=== PATIENT | male | born 1990 | race American Indian/Alaskan Native ===

== ENCOUNTER 2017-10-23 20:29 | Emergency (ER) | payer OTHER ==
--- NOTE | 2017-10-24 00:11 | Emergency Department Report ---
Upper Respiratory HPI - HPI Chief Complaint: Upper Respiratory Infection Stated Complaint: HEADACHE,COUGH Time Seen by Provider: 10/23/17 23:00 Duration: 2 Days URI Symptoms: Rhinorrhea: No, Sore Throat: No, Ear Pain: No, Cough: Yes ( patient has had a mild cough productive of clear sputum), Shortness of Breath: No, Sick Contacts: No, Unable to Take Fluids: No, Urine Output Abnormal: No, Listless Behavior: No Other History: Patient is a 26-year-old male who has a history of smoking who is presenting with productive cough patient deny most other symptoms that would be concerning such as fever body aches respiratory distress. Patient also has no nausea vomiting diarrhea sore throat at this time - Home Meds and Allergies Home Medications: Previous Rx's Medication Instructions Recorded Last Taken Type Azithromycin [Zithromax Z-THEODORE] 250 mg PO DAILY 5 Days #6 tablet 10/23/17 Unknown Rx predniSONE [Deltasone] 20 mg PO QDAY #5 tab 10/24/17 Unknown Rx Allergies/Adverse Reactions: Allergies Allergy/AdvReac Type Severity Reaction Status Date / Time No Known Allergies Allergy Unverified 10/23/17 20:37 ED Review of Systems ROS: Stated complaint: HEADACHE,COUGH Other details as noted in HPI Comment: All other systems reviewed and negative ED Past Medical Hx - Past Medical History Previous Medical History?: No - Surgical History Past Surgical History?: No - Social History Smoking Status: Current Every Day Smoker Substance Use Type: None - Medications Home Medications: Home Medications Medication Instructions Recorded Confirmed Last Taken Type Azithromycin [Zithromax Z-THEODORE] 250 mg PO DAILY 5 Days #6 tablet 10/23/17 Unknown Rx predniSONE [Deltasone] 20 mg PO QDAY #5 tab 10/24/17 Unknown Rx ED Bronchiolitis Physical Exam - Exam General: Vital signs noted. No distress. Alert and acting appropriately. HEENT: No Pharyngeal Erythema, No Conjuctival Injection, No Dry Mucous Membranes , No Rhinorrhea Ear: Neither TM Bulge, Neither TM Erythema, Neither EAC Discharge Neck: No Adenopathy, No Rigidity Lungs: Yes Clear Lung Sounds, Yes Good Air Exchange, No Wheezes, No Stridor, No Cough, No Nasal Flaring, No Retractions, No Use of Accessory Muscles Heart: Yes Regular, No Murmur Abdomen: Yes Normal Bowel Sounds, No Tenderness, No Peritoneal Signs Skin: No Rash, No Eczema Neurologic: Alert and oriented, no deficits. Musculoskeletal: Unremarkable. ED Physical Exam - General Limitations: No Limitations ED Course Vital Signs 10/23/17 20:37 Temperature 97.8 F Pulse Rate 98 H Respiratory 18 Rate Blood Pressure 137/84 O2 Sat by Pulse 98 Oximetry - Reevaluation(s) Reevaluation #1: 10/23/17 23:50 Patient is a 26-year-old [place] male who is presenting with call call congestion patient is a smoker be treated smoke and bronchitis were given a Z- Theodore and prednisone will be discharged home Critical care attestation.: If time is entered above; I have spent that time in minutes in the direct care of this critically ill patient, excluding procedure time. ED Disposition Clinical Impression: Bronchitis Disposition: DC-01 TO HOME OR SELFCARE Is pt being admited?: No Does the pt Need Aspirin: No Condition: Fair Instructions: Acute Bronchitis (ED) Prescriptions: Azithromycin [Zithromax Z-THEODORE] 250 mg PO DAILY 5 Days #6 tablet predniSONE [Deltasone] 20 mg PO QDAY #5 tab Referrals: MIMI VALADEZ MD [Primary Care Provider] - 3-5 Days Forms: Work/School Release Form(ED)
[2017-10-24 00:44] VITALS: BP 133/91
== END 2017-10-24 00:43 | disposition home or self-care (01) ==
LOC: ED 20:29
DX: J40 Bronchitis, not specified as acute or chronic (principal); F17.200 Nicotine dependence, unspecified, uncomplicated
CPT/HCPCS: 99282

== ENCOUNTER 2019-11-24 08:34 | Emergency (ER) | payer SELFPAY ==
--- NOTE | 2019-11-24 12:37 | Emergency Department Report ---
ED General Adult HPI - General Chief complaint: Headache Stated complaint: HEADACHE/COLD FLASHES Time Seen by Provider: 11/24/19 11:44 Source: patient Mode of arrival: Ambulatory Limitations: No Limitations - History of Present Illness Initial comments: This is a 29-year-old male complaining of headache ,neck pain, sore throat and chills off and on. Symptoms started yesterday. He denies fever vomiting and diarrhea no cough - Related Data Previous Rx's Medication Instructions Recorded Last Taken Type Azithromycin [Zithromax Z-THEODORE] 250 mg PO DAILY 5 Days #6 tablet 10/23/17 Unknown Rx predniSONE [Deltasone] 20 mg PO QDAY #5 tab 10/24/17 Unknown Rx Amoxicillin [Trimox CAP] 500 mg PO Q12H 10 Days #20 capsule 11/24/19 Unknown Rx Allergies Allergy/AdvReac Type Severity Reaction Status Date / Time No Known Allergies Allergy Verified 11/24/19 08:36 ED Review of Systems ROS: Stated complaint: HEADACHE/COLD FLASHES Other details as noted in HPI Comment: All other systems reviewed and negative Constitutional: chills. denies: fever ENT: throat pain Respiratory: denies: cough, shortness of breath Cardiovascular: denies: dyspnea on exertion Gastrointestinal: denies: abdominal pain Neurological: headache ED Past Medical Hx - Past Medical History Previous Medical History?: No - Surgical History Past Surgical History?: No - Social History Smoking Status: Former Smoker Substance Use Type: None - Medications Home Medications: Home Medications Medication Instructions Recorded Confirmed Last Taken Type Azithromycin [Zithromax Z-THEODORE] 250 mg PO DAILY 5 Days #6 tablet 10/23/17 Unknown Rx predniSONE [Deltasone] 20 mg PO QDAY #5 tab 10/24/17 Unknown Rx Amoxicillin [Trimox CAP] 500 mg PO Q12H 10 Days #20 capsule 11/24/19 Unknown Rx ED Physical Exam - General Limitations: No Limitations General appearance: alert, in no apparent distress - Head Head exam: Present: atraumatic - Eye Eye exam: Present: normal appearance. Absent: conjunctival injection - ENT ENT exam: Present: mucous membranes moist, TM's normal bilaterally, other (left tonsil exudate, pharyngeal erythema, Uvula midline no trimus) - Neck Neck exam: Present: full ROM, lymphadenopathy - Respiratory Respiratory exam: Present: normal lung sounds bilaterally. Absent: respiratory distress, wheezes - Cardiovascular Cardiovascular Exam: Present: regular rate, normal heart sounds - Neurological Exam Neurological exam: Present: alert, CN II-XII intact, normal gait - Psychiatric Psychiatric exam: Present: normal affect - Skin Skin exam: Present: warm, dry, intact, normal color. Absent: rash ED Course Vital Signs 11/24/19 08:41 Temperature 99.6 F Pulse Rate 100 H Respiratory 18 Rate Blood Pressure 138/85 O2 Sat by Pulse 98 Oximetry ED Medical Decision Making - Medical Decision Making 29-year-old male with a one day complaint of headache, sore throat, neck pain and chills. On exam he did have exudate on the right tonsil rapid strep was positive, will treat with antibiotics patient instructed to change his toothbrush 24 hours after starting antibiotic warm salt water gargles and Advil or Tylenol when necessary for pain or fever Critical Care Time: No Critical care attestation.: If time is entered above; I have spent that time in minutes in the direct care of this critically ill patient, excluding procedure time. ED Disposition Clinical Impression: Strep pharyngitis Disposition: -01 TO HOME OR SELFCARE Is pt being admited?: No Does the pt Need Aspirin: No Condition: Stable Instructions: Strep Throat (ED) Additional Instructions: Warm salt water gargles 3 times a day Advil or Tylenol when necessary for pain or Fever. take all of antibiotics until is completed change her toothbrush 24 hours after starting antibiotic. Which are primary care doctor as needed Prescriptions: Amoxicillin [Trimox CAP] 500 mg PO Q12H 10 Days #20 capsule Referrals: [facility], [Primary Care Provider] - 3-5 Days Time of Disposition: 12:40
[2019-11-24 13:04] VITALS: BP 136/84
== END 2019-11-24 13:03 | disposition home or self-care (01) ==
LOC: ED 08:34
DX: J02.0 Streptococcal pharyngitis (principal)
CPT/HCPCS: 87430; 99283

== ENCOUNTER 2021-02-17 03:29 | Emergency (ER) | payer SELFPAY ==
[2021-02-17 03:41] VITALS: BP 128/89
[2021-02-17] MEDS ORDERED: SUMAtriptan SUCCINATE 6 MG/0.5 ML INJ SUB-Q ONE (03:47)
--- NOTE | 2021-02-17 04:37 | Cat Scan Report ---
CT HEAD WITHOUT CONTRAST INDICATION / CLINICAL INFORMATION: Headache for 2 months. TECHNIQUE: All CT scans at this location are performed using CT dose reduction for ALARA by means of automated exposure control. COMPARISON: None available. FINDINGS: HEMORRHAGE: None. EXTRA-AXIAL SPACES: Normal in size and morphology for the patient's age. VENTRICULAR SYSTEM: Normal in size and morphology for the patient's age. CEREBRAL PARENCHYMA: No significant abnormality. No acute territorial infarct. MIDLINE SHIFT / HERNIATION: None. CEREBELLUM / BRAINSTEM: No significant abnormality. ORBITS: Normal as visualized. SOFT TISSUES: No significant abnormality. SKULL: No significant abnormality. PARANASAL SINUSES / MASTOID AIR CELLS: Normal as visualized. ADDITIONAL FINDINGS: None. IMPRESSION: No acute intracranial abnormality. Signer Name: Harry Beaver MD Signed: 02/17/2021 4:33 AM Workstation Name: [id number]
[2021-02-17 04:45] LABS: Basophils % (Auto) 0.7 % (0.0-1.8); Eosinophils # (Auto) 0.1 K/mm3 (0.0-0.4); Eosinophils % (Auto) 1.4 % (0.0-4.3); Hematocrit 42.5 % (35.5-45.6); Hemoglobin 14.8 gm/dl (11.8-15.2); Lymphocytes # (Auto) 1.9 K/mm3 (1.2-5.4); Lymphocytes % (Auto) 33.6 % (13.4-35.0); Mean Corpuscular HGB Conc 35 % (32-34); Mean Corpuscular Volume 94 fl (84-94); Monocytes # (Auto) 0.7 K/mm3 (0.0-0.8); Monocytes % (Auto) 12.6 % (0.0-7.3); Platelet Count 219 K/mm3 (140-440); Red Blood Count 4.51 M/mm3 (3.65-5.03); Red Cell Distribution Width 12.5 % (13.2-15.2)
--- NOTE | 2021-02-17 04:56 | Emergency Department Report ---
ED General Adult HPI - General Chief complaint: Headache Stated complaint: HEADACHE Time Seen by Provider: 02/17/21 03:43 Source: patient Mode of arrival: Ambulatory Limitations: No Limitations - History of Present Illness Initial comments: 30-year-old -[place] male patient presents with complaints of intermittent left-sided headache x2 months, suddenly worsening tonight. He states the pain normally occurs at night and admits to left eye watering and left nasal drainage. He denies any past medical history of migraines, head trauma, numbness/tingling/weakness in his limbs, confusion, memory loss, nausea/vomiting, difficulty with speech/ambulation, vision changes, or dizziness. He rates his current headache as a 9/10 in severity and states it is not improving with OTC medications. No past medical history per patient. - Related Data Previous Rx's Medication Instructions Recorded Last Taken Type Azithromycin [Zithromax Z-THEODORE] 250 mg PO DAILY 5 Days #6 tablet 10/23/17 Unknown Rx predniSONE [Deltasone] 20 mg PO QDAY #5 tab 10/24/17 Unknown Rx Amoxicillin [Trimox CAP] 500 mg PO Q12H 10 Days #20 capsule 11/24/19 Unknown Rx SUMAtriptan succinate [Sumatriptan 6 mg SQ QDAY PRN #6 pen 02/17/21 Unknown Rx Succinate] Allergies Allergy/AdvReac Type Severity Reaction Status Date / Time No Known Allergies Allergy Verified 11/24/19 08:36 ED Review of Systems ROS: Stated complaint: HEADACHE Other details as noted in HPI Constitutional: denies: chills, diaphoresis, fever, malaise, weakness Respiratory: denies: cough, shortness of breath Cardiovascular: denies: chest pain Endocrine: denies: excessive sweating Gastrointestinal: denies: abdominal pain, nausea, vomiting Musculoskeletal: denies: back pain Skin: denies: change in color Neurological: headache. denies: numbness, paresthesias, confusion, abnormal gait Hematological/Lymphatic: denies: swollen glands ED Past Medical Hx - Past Medical History Previous Medical History?: No - Surgical History Past Surgical History?: No - Social History Smoking Status: Never Smoker Substance Use Type: None - Medications Home Medications: Home Medications Medication Instructions Recorded Confirmed Last Taken Type Azithromycin [Zithromax Z-THEODORE] 250 mg PO DAILY 5 Days #6 tablet 10/23/17 Unknown Rx predniSONE [Deltasone] 20 mg PO QDAY #5 tab 10/24/17 Unknown Rx Amoxicillin [Trimox CAP] 500 mg PO Q12H 10 Days #20 capsule 11/24/19 Unknown Rx SUMAtriptan succinate [Sumatriptan 6 mg SQ QDAY PRN #6 pen 02/17/21 Unknown Rx Succinate] ED Physical Exam - General Limitations: No Limitations General appearance: alert, in no apparent distress - Head Head exam: Present: atraumatic, normocephalic - Eye Eye exam: Present: normal appearance. Absent: scleral icterus - Neck Neck exam: Present: normal inspection, full ROM. Absent: tenderness - Respiratory Respiratory exam: Present: normal lung sounds bilaterally. Absent: respiratory distress - Cardiovascular Cardiovascular Exam: Present: regular rate, normal rhythm - Neurological Exam Neurological exam: Present: alert, oriented X3, CN II-XII intact, normal gait. Absent: motor sensory deficit - Expanded Neurological Exam Expanded Cerebellar function: Finger to Nose: Normal, Heel to [place]: Normal, [place]: Normal Sensory exam: Upper Extremity Light Touch: Normal, Lower Extremity Light Touch: Normal Motor strength exam: RUE: 5, LUE: 5, RLE: 5, LLE: 5 - Psychiatric Psychiatric exam: Present: normal affect, normal mood - Skin Skin exam: Present: warm, dry, intact, normal color. Absent: rash ED Course Vital Signs 02/17/21 03:39 Temperature 98.0 F Pulse Rate 72 Respiratory 16 Rate Blood Pressure 128/89 O2 Sat by Pulse 96 Oximetry ED Medical Decision Making - Lab Data Result diagrams: 02/17/21 04:01 02/17/21 04:01 Lab Results 02/17/21 02/17/21 Range/Units 04:01 04:01 WBC 5.6 (4.5-11.0) K/mm3 RBC 4.51 (3.65-5.03) M/mm3 Hgb 14.8 (11.8-15.2) gm/dl Hct 42.5 (35.5-45.6) % MCV 94 (84-94) fl MCH 33 H (28-32) pg MCHC 35 H (32-34) % RDW 12.5 L (13.2-15.2) % Plt Count 219 (140-440) K/mm3 Lymph % (Auto) 33.6 (13.4-35.0) % [place] % (Auto) 12.6 H (0.0-7.3) % Eos % (Auto) 1.4 (0.0-4.3) % Baso % (Auto) 0.7 (0.0-1.8) % Lymph # (Auto) 1.9 (1.2-5.4) K/mm3 [place] # (Auto) 0.7 (0.0-0.8) K/mm3 Eos # (Auto) 0.1 (0.0-0.4) K/mm3 Baso # (Auto) 0.0 (0.0-0.1) K/mm3 Seg Neutrophils % 51.7 (40.0-70.0) % Seg Neutrophils # 2.9 (1.8-7.7) K/mm3 Sodium 138 (137-145) mmol/L Potassium 3.6 (3.6-5.0) mmol/L Chloride 99.6 (98-107) mmol/L Carbon Dioxide 28 (22-30) mmol/L Anion Gap 14 mmol/L BUN 12 (9-20) mg/dL Creatinine 1.1 (0.8-1.3) mg/dL Estimated GFR > 60 ml/min BUN/Creatinine Ratio 11 % Glucose 93 (75-100) mg/dL Calcium 8.7 (8.4-10.2) mg/dL Total Bilirubin 0.40 (0.1-1.2) mg/dL AST 21 (5-40) units/L ALT 19 (7-56) units/L Alkaline Phosphatase 90 (35-129) units/L Total Protein 7.5 (6.3-8.2) g/dL Albumin 4.4 (3.9-5) g/dL Albumin/Globulin Ratio 1.4 % - Radiology Data Radiology results: report reviewed CT HEAD WITHOUT CONTRAST INDICATION / CLINICAL INFORMATION: Headache for 2 months. TECHNIQUE: All CT scans at this location are performed using CT dose reduction for ALARA by means of automated exposure control. COMPARISON: None available. FINDINGS: HEMORRHAGE: None. EXTRA-AXIAL SPACES: Normal in size and morphology for the patient's age. VENTRICULAR SYSTEM: Normal in size and morphology for the patient's age. CEREBRAL PARENCHYMA: No significant abnormality. No acute territorial infarct. MIDLINE SHIFT / HERNIATION: None. CEREBELLUM / BRAINSTEM: No significant abnormality. ORBITS: Normal as visualized. SOFT TISSUES: No significant abnormality. SKULL: No significant abnormality. PARANASAL SINUSES / MASTOID AIR CELLS: Normal as visualized. ADDITIONAL FINDINGS: None. IMPRESSION: No acute intracranial abnormality. - Medical Decision Making 30-year-old -[place] male patient presents with complaints of intermittent left-sided headache x2 months, suddenly worsening tonight. He states the pain normally occurs at night and admits to left eye watering and left nasal drainage. He denies any past medical history of migraines, head trauma, numbness/tingling/weakness in his limbs, confusion, memory loss, nausea/vomiting, difficulty with speech/ambulation, vision changes, or dizziness. He rates his current headache as a 9/10 in severity and states it is not improving with OTC medications. No past medical history per patient. CT head is normal. Labs are within normal limits. Patient states headache improved with oxygen via nasal cannula and completely resolved with sumatriptan. Sumatriptan prescription given for home. Advise follow-up with primary care for further evaluation and treatment of cluster headaches. His vitals are normal, he is well-appearing, he is stable for discharge home. Discussed signs and symptoms that should prompt immediate return to the emergency department in detail with patient who verbalizes understanding. Critical care attestation.: If time is entered above; I have spent that time in minutes in the direct care of this critically ill patient, excluding procedure time. ED Disposition Clinical Impression: Cluster headache Qualifiers: Headache chronicity pattern: unspecified pattern Intractability: not intractable Qualified Code(s): G44.009 - Cluster headache syndrome, unspecified, not intractable Disposition: DC-01 TO HOME OR SELFCARE Is pt being admited?: No Condition: Stable Instructions: Cluster Headache Prescriptions: SUMAtriptan succinate [Sumatriptan Succinate] 6 mg SQ QDAY PRN #6 pen PRN Reason: Headache Referrals: [facility] [Provider Group] - 3-5 Days
[2021-02-17 05:01] LABS: Alanine Aminotransferase 19 units/L (7-56); Albumin 4.4 g/dL (3.9-5); BUN/Creatinine Ratio 11; Blood Urea Nitrogen 12 mg/dL (9-20); Calcium 8.7 mg/dL (8.4-10.2); Hemolysis Index 5
== END 2021-02-17 05:47 | disposition home or self-care (01) ==
LOC: ED 03:29
DX: G44.009 Cluster headache syndrome, unspecified, not intractable (principal); Z79.899 Other long term (current) drug therapy
CPT/HCPCS: 36415; 70450; 80053; 85025; 96372; J3030